=== PATIENT | female | born 1995 | race Hispanic/Latino ===

== ENCOUNTER 2021-02-16 12:46 | Emergency (ER) | payer MEDICAID ==
[~2021-02-16] VITALS: Ht 154.9 cm; Wt 54.4 kg
[2021-02-16 12:47] VITALS: BP 124/71
[2021-02-16] MEDS ORDERED: DIPH25 PO (13:41)
== END 2021-02-16 13:53 | disposition home or self-care (01) ==
LOC: EDH 12:46
DX: O98.511 Other viral diseases complicating pregnancy, first trimester (principal); B34.9 Viral infection, unspecified; Z20.822 Contact with and (suspected) exposure to COVID-19; O99.511 Diseases of the respiratory system complicating pregnancy, first trimester; J45.909 Unspecified asthma, uncomplicated; Z3A.11 11 weeks gestation of pregnancy
CPT/HCPCS: 87635; 87804 ×2; 87880; 99283; C9803

== ENCOUNTER 2021-08-17 23:39 | Inpatient (IN) | payer OTHER, MEDICAID ==
[~2021-08-17] VITALS: Ht 152.4 cm; Wt 61.2 kg
[~2021-08-17 23:39] MED LIST: DIPH25 PO
[2021-08-18 00:30] LABS: APPEARANCE,URINE Clear (CLEAR); BILIRUBIN,URINE Negative (NEGATIVE); COLOR,URINE Yellow (YELLOW); GLUCOSE, URINE (UA) Negative (NEGATIVE); KETONES,URINE Negative (NEGATIVE); LEUKOCYTE ESTERASE ,URINE Negative (NEGATIVE); NITRATE,URINE Negative (NEGATIVE); OCCULT BLOOD,URINE Negative (NEGATIVE); PH,URINE 6.5 (5.0-8.0); PROTEIN,URINE Negative (NEGATIVE); UROBILINOGEN,URINE 0.2 mg/dL (0.2-1.0)
[2021-08-18 00:48] LABS: AMPHET/METH SCREEN,URINE NEGATIVE (NEGATIVE); BARBITURATE SCREEN, URINE NEGATIVE (NEGATIVE); BENZODIAZEPINES SCREEN,URINE NEGATIVE (NEGATIVE); CANNABINOID SCREEN,URINE NEGATIVE (NEGATIVE); COCAINE SCREEN,URINE NEGATIVE (NEGATIVE); OPIATE SCREEN,URINE NEGATIVE (NEGATIVE); PHENCYCLIDINE SCREEN,URINE NEGATIVE (NEGATIVE)
[2021-08-18 01:17] LABS: HEMATOCRIT 32.5 % (36-48); MEAN CORPUSCULAR HGB CONC 32.9 g/dL (32.0-36.0); MEAN CORPUSCULAR VOLUME 79.1 fL (79-99); RED BLOOD CELL COUNT(AUTO) 4.11 MIL/uL (4.00-5.50); RED CELL DISTRIBUTION WIDTH 13.5 % (11.0-15.5); WHITE BLOOD COUNT (AUTO) 9.1 K/uL (4.8-10.8)
[2021-08-18 01:19] VITALS: BP 127/92
[2021-08-18] MEDS ORDERED: ROPIVACAINE 0.2% 100ML VIAL 100 ML EP SCH (01:30)
[2021-08-18] MEDS ORDERED: MEPERIDINE-PF 50 MG/ML SYG IVP PRN (01:30)
[2021-08-18] MEDS ORDERED: LACTATED RINGERS 500 ML 500 ML IV PRN (01:30)
[2021-08-18] MEDS ORDERED: PROMETHAZINE HCL 25 MG/ML 1ML AMPULE IM PRN (01:30)
[2021-08-18] MEDS ORDERED: EPHEDRINE SULFATE 50 MG/ML AMPULE IVP PRN (01:30)
[2021-08-18] MEDS ORDERED: NALOXONE HCL 0.4 MG/1 ML ML IV PRN (01:30)
[2021-08-18] MEDS ORDERED: AMPICILLIN 2GM+NS 100ML 100 ML IV SCH (01:30)
[2021-08-18] MEDS ORDERED: LACTATED RINGERS 1000ML 1,000 ML IV PRN (01:30)
[2021-08-18] MEDS: OXYTOCIN-LR 20 UNITS/1000 ML 1,000 ML IV SCH ×2 (04:57→15:40)
[2021-08-18] MEDS ORDERED: AMPICILLIN 1GM+NS 50ML 50 ML IV SCH (05:30)
[2021-08-18 07:36] LABS: RAPID PLASMA REAGIN NONREACTIVE (NONREACTIVE)
[2021-08-18] MEDS ORDERED: DIPH,PERTUSS(ACELL),TET VAC/PF 0.5 ML VIAL IM PRN (16:00)
[2021-08-18] MEDS ORDERED: ACETAMINOPHEN WITH CODEINE 1 TAB TAB PO PRN (16:00)
[2021-08-18] MEDS ORDERED: BENZOCAINE/LANOLIN/ALOE VERA 60 ML AEROSOL TP PRN (16:00)
[2021-08-18] MEDS ORDERED: LANOLIN 30GM OINTMENT TP PRN (16:00)
[2021-08-18] MEDS ORDERED: MEASLES/MUMPS/RUBELLA VACCINE, LIVE 0.5 ML/VIAL SQ PRN (16:00)
[2021-08-18] MEDS ORDERED: WITCH HAZEL 1 PAD TP PRN (16:00)
[2021-08-18] MEDS ORDERED: ACETAMINOPHEN 325 MG TAB PO PRN (16:00)
[2021-08-18 17:14] VITALS: BP 127/82
[2021-08-18] MEDS: IBUPROFEN 600 MG TABLET PO PRN (17:20)
[2021-08-18] MEDS ORDERED: PNV1TABL17 PO (17:57)
[2021-08-18 19:40] VITALS: BP 120/88
[2021-08-18] MEDS: DOCUSATE SODIUM 100 MG CAP PO SCH (21:23)
[2021-08-18 23:07] VITALS: BP 123/84
[2021-08-19] MEDS: LACTATED RINGERS 1000ML 1,000 ML IV SCH
[2021-08-19 03:18] VITALS: BP 124/76
[2021-08-19] MEDS: IBUPROFEN 600 MG TABLET PO PRN ×2 (03:18→09:12)
[2021-08-19 07:39] VITALS: BP 109/72
[2021-08-19 08:16] LABS: HEPATITIS Bs ANTIGEN SCREEN P Negative (Negative)
[2021-08-19] MEDS: DOCUSATE SODIUM 100 MG CAP PO SCH ×2 (09:05→21:20)
[2021-08-19 11:28] VITALS: BP 116/81
[2021-08-19 16:41] VITALS: BP 128/84
[2021-08-19 19:33] VITALS: BP 127/81
[2021-08-19 23:42] VITALS: BP 133/85
[2021-08-20] MEDS: LACTATED RINGERS 1000ML 1,000 ML IV SCH
[2021-08-20] MEDS: IBUPROFEN 600 MG TABLET PO PRN ×2 (00:01→09:06)
[2021-08-20 03:36] VITALS: BP 121/93
[2021-08-20 07:21] VITALS: BP 115/77
[2021-08-20] MEDS: DOCUSATE SODIUM 100 MG CAP PO SCH (09:06)
[2021-08-20 11:26] VITALS: BP 124/80
== END 2021-08-20 13:35 | disposition home or self-care (01) | DRG 807 ==
LOC: EDH 23:39 → LDH 23:56 → OBSVTOIN 23:56 → WSH 08-18 17:12
PROVIDERS: ADMIT Specialist; ATTEND Specialist
PROC: 10E0XZZ Delivery of Products of Conception, External Approach (ICD-10-PCS; principal; 2021-08-18)
PROC: 0W8NXZZ Division of Female Perineum, External Approach (ICD-10-PCS; 2021-08-18)
PROC: 3E0R3BZ Introduction of Anesthetic Agent into Spinal Canal, Percutaneous Approach (ICD-10-PCS; 2021-08-18)
PROC: 00HU33Z Insertion of Infusion Device into Spinal Canal, Percutaneous Approach (ICD-10-PCS; 2021-08-18)
DX: O98.32 Other infections with a predominantly sexual mode of transmission complicating childbirth (principal); Z37.0 Single live birth; A56.8 Sexually transmitted chlamydial infection of other sites; Z3A.38 38 weeks gestation of pregnancy
CPT/HCPCS: 36415; 80305; 81003; 85027; 86592; 86701; 86850; 86900; 86901; 87340; 87390; 90715; A4314; G0378; J0290; J2175; J2550; J2590; J2795; J7120

== ENCOUNTER 2024-04-23 08:42 | Emergency (ER) | payer MEDICAID, OTHER ==
[~2024-04-23] VITALS: Ht 152.4 cm; Wt 59.0 kg
[~2024-04-23 08:42] MED LIST changes: +DIPH-1242 PO; -DIPH25 PO; +PNV1TABL17 PO
[2024-04-23] MEDS: 0.9%NACL 1000ML 456 ML IV ONE (09:45)
[2024-04-23] MEDS: acetaMINOPHEN 500 MG TABLET PO ONE (10:58)
[2024-04-23] MEDS: 0.9%NACL 1000ML 1,000 ML IV ONE (11:10)
[2024-04-23 11:43] VITALS: BP 144/96; PULSE 71; RESP 14; TEMP 98; TEMP 98.1; O2SAT 100
== END 2024-04-23 11:51 | disposition home or self-care (01) ==
LOC: EDH 08:42
DX: S16.1XXA Strain of muscle, fascia and tendon at neck level, initial encounter (principal); R51.9 Headache, unspecified; J45.909 Unspecified asthma, uncomplicated; Z79.899 Other long term (current) drug therapy; Z91.011 Allergy to milk products; Z91.018 Allergy to other foods; V89.2XXA Person injured in unspecified motor-vehicle accident, traffic, initial encounter; Y93.89 Activity, other specified; Y92.488 Other paved roadways as the place of occurrence of the external cause; Y99.8 Other external cause status
CPT/HCPCS: 99284; 70450; 96360; 72125; J7030